=== PATIENT | male | born 1970 | race African-American/Black ===

== ENCOUNTER 2016-06-07 14:02 | Inpatient (IN) | payer MEDICAID ==
[2016-06-07] MEDS ORDERED: SODIUM CHLORIDE 0.9% 10 ML FLUSH FLUSH PRN (14:54)
[2016-06-07] MEDS ORDERED: LABETALOL 20 MG/4 ML SYRINGE IV ONE (14:55)
[2016-06-07 15:13] LABS: AUTOMATED BASOPHIL 2.6 % (0-2); AUTOMATED MONOCYTE 8.9 % (3-10); AUTOMATED NEUTROPHIL 53.5 % (45-76); MPV 8.1 fL (7.4-10.4)
--- NOTE | 2016-06-07 15:19 | DIRPT ---
CLINICAL DATA: Chest pain and dizziness. Hypertension. EXAM: PORTABLE CHEST 1 VIEW COMPARISON: September 19, 2011 FINDINGS: There is no edema or consolidation. Heart is upper normal in size with pulmonary vascularity within normal limits. Aorta is mildly prominent but stable. No adenopathy. No bone lesions. No pneumothorax. IMPRESSION: No edema or consolidation. Stable cardiac silhouette. Chronic prominence of the thoracic aorta is stable and likely due to chronic hypertensive change. Electronically Signed By: Luke Park III, M.D. On: 06/07/2016 15:17
--- NOTE | 2016-06-07 15:21 | EDPRACDOC ---
- General Information Information Source: Patient - History of Present Illness Onset: 2 weeks HPI: PT PRESENTS TODAY WITH SHOB, BACK PAIN AND DIZZINESS X SEVERAL WEEKS. PT STATES THAT HE HAS BEEN OUT OF HIS BP/DM MEDS D/T FINANCES. PT STATES DIZZINESS WITH STANDING, MORA, AND MID-THORACIC BACK PAIN. DENIES CP, ABD PAIN, N/V/D. NO APPARENT DISTRESS. 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 Symptoms: Reports: Moderate Circumstances: Reports: Ran Out of Medication Relevent History of: Reports: Hypertension Hypertension Treatment: Reports: Noncompliant, Recent Cessation Recent Use of: Reports: None Associated Signs and Symptoms: Reports: Shortness of Breath, Other <Ev Urrutia - Last Filed: 06/07/16 17:04> <Clover Orlando - Last Filed: 06/07/16 18:11> - General Information Chief Complaint: Blood Pressure (Problems) Stated Complaint: HIGH BP AND HIGH BLOOD SUGAR Time Seen by Provider: 06/07/16 14:47 Home Medications: Home Medications No Home Medications 06/07/16 Allergies/Adverse Reactions: Allergies Allergy/AdvReac Type Severity Reaction Status Date / Time No Known Allergies Allergy Verified 06/07/16 17:04 ED Past Medical History - History Reviewed Yes Nurses notes reviewed and agree except as marked - Patient Medical History Cardiac History: Reports: Hypertension Psychological History: Denies: Depression Systemic History: Reports: Diabetes <Ev Urrutia - Last Filed: 06/07/16 17:04> EDM Review of Systems - Review of Systems ROS Negative Except as Marked: Yes All systems reviewed and were negative except as marked Constitutional: Fatigue Eyes: No Symptoms Reported Ears: No Symptoms Reported Throat: No Symptoms Reported Nose: No Symptoms Reported Respiratory: Shortness of Breath Cardiovascular: No Symptoms Reported Gastrointestinal: No Symptoms Reported Neurological: Dizziness Musculoskeletal: Back Integumentary: No Symptoms Reported <Ev Urrutia - Last Filed: 06/07/16 17:04> - Physical Exam Constitutional: Alert (Awake), No apparent distress Oriented to: Time, Person, Place Last recorded Vital Signs: Last Vital Signs Temp 98.3 F 06/07/16 14:38 Pulse 88 06/07/16 15:05 Resp 16 06/07/16 15:05 BP 235/140 H 06/07/16 15:05 Pulse Ox 96 06/07/16 15:05 Oxygen Pulse Oxygen Saturation 96 O2 Device Room Air Oxygen Flow Rate Fraction of Inspired Oxygen ( FIO2) - HEENT Head: Normal Eye Exam: Normal Neck: Normal, Denies Pain, Midline - Respiratory/Cardiovascular Respiratory: Normal - CTA Cardiovascular: Tachycardia - GI Palpation: Normal Tenderness: Non tender - Musculoskeletal Back: Normal Extremities: Normal, Other (RADIAL AND PEDAL PULSES BOUNDING AND EQUAL) - Integumentary Skin: Normal Lymphatics: Normal - Neurologic Cerebellar: Normal Mood Description: Normal Thought: Coherent Perception: Normal <Ev Urrutia - Last Filed: 06/07/16 17:04> - Physical Exam Last recorded Vital Signs: Last Vital Signs Temp 98.3 F 06/07/16 14:38 Pulse 83 06/07/16 16:20 Resp 18 06/07/16 16:20 BP 216/128 H 06/07/16 16:20 Pulse Ox 97 06/07/16 16:20 Oxygen Pulse Oxygen Saturation 97 O2 Device Room Air Oxygen Flow Rate Fraction of Inspired Oxygen ( FIO2) <Clover Orlando - Last Filed: 06/07/16 18:11> - Results 06/07/16 14:55 06/07/16 14:55 WBC 5.8 xk/uL (3.8-10.8) 06/07/16 14:55 RBC 5.38 xM/uL (4.70-6.10) 06/07/16 14:55 Hgb 15.7 g/dL (14.0-18.0) 06/07/16 14:55 Hct 45.0 % (42-52) 06/07/16 14:55 MCV 84 fL (80-94) 06/07/16 14:55 MCH 29.1 pg (27-32) 06/07/16 14:55 MCHC 34.8 g/dl (33-36) 06/07/16 14:55 RDW 12.8 % (11.5-14.5) 06/07/16 14:55 Plt Count 270 xk/uL (130-400) 06/07/16 14:55 MPV 8.1 fL (7.4-10.4) 06/07/16 14:55 Neut % (Auto) 53.5 % (45-76) 06/07/16 14:55 Lymph % (Auto) 30.0 % (17-44) 06/07/16 14:55 [place] % (Auto) 8.9 % (3-10) 06/07/16 14:55 Eos % (Auto) 5.0 % (0-5) 06/07/16 14:55 Baso % (Auto) 2.6 % (0-2) H 06/07/16 14:55 Absolute Neuts (auto) 3.07 xk/uL (1.7-8.2) 06/07/16 14:55 Absolute Lymphs (auto) 1.74 xk/uL (0.65-4.75) 06/07/16 14:55 POC Capillary Glucose 362 MG/DL (70-99) H 06/07/16 14:56 Lab Results 06/07/16 06/07/16 14:56 14:55 WBC 5.8 RBC 5.38 Hgb 15.7 Hct 45.0 MCV 84 MCH 29.1 MCHC 34.8 RDW 12.8 Plt Count 270 MPV 8.1 Neut % (Auto) 53.5 Lymph % (Auto) 30.0 [place] % (Auto) 8.9 Eos % (Auto) 5.0 Baso % (Auto) 2.6 H Absolute Neuts (auto) 3.07 Absolute Lymphs (auto) 1.74 POC Capillary Glucose 362 H - EKG EKG #1 EKG Time: 14:49 -: Yes EKG interpreted by me Rate: bpm: 104 [place]: Normal Rhythm: ST Block: None Hypertrophy: LAE, MAZIN, LVH ST: Normal Comparison: 09/19/11 EKG #2 EKG Time: 14:55 -: Yes EKG interpreted by me Rate: bpm: 89 [place]: Normal Rhythm: NSR Block: None Hypertrophy: LAE, MAZIN, LVH ST: Normal <Ev Urrutia - Last Filed: 06/07/16 17:04> - Re-evaluation Re-evaluation 1 Re-evaluation Time: 17:00 (BP STILL VERY HIGH) - Results 06/07/16 14:55 06/07/16 14:55 WBC 5.8 xk/uL (3.8-10.8) 06/07/16 14:55 RBC 5.38 xM/uL (4.70-6.10) 06/07/16 14:55 Hgb 15.7 g/dL (14.0-18.0) 06/07/16 14:55 Hct 45.0 % (42-52) 06/07/16 14:55 MCV 84 fL (80-94) 06/07/16 14:55 MCH 29.1 pg (27-32) 06/07/16 14:55 MCHC 34.8 g/dl (33-36) 06/07/16 14:55 RDW 12.8 % (11.5-14.5) 06/07/16 14:55 Plt Count 270 xk/uL (130-400) 06/07/16 14:55 MPV 8.1 fL (7.4-10.4) 06/07/16 14:55 Neut % (Auto) 53.5 % (45-76) 06/07/16 14:55 Lymph % (Auto) 30.0 % (17-44) 06/07/16 14:55 [place] % (Auto) 8.9 % (3-10) 06/07/16 14:55 Eos % (Auto) 5.0 % (0-5) 06/07/16 14:55 Baso % (Auto) 2.6 % (0-2) H 06/07/16 14:55 Absolute Neuts (auto) 3.07 xk/uL (1.7-8.2) 06/07/16 14:55 Absolute Lymphs (auto) 1.74 xk/uL (0.65-4.75) 06/07/16 14:55 PT 10.0 SEC (9.2-11.2) 06/07/16 14:55 INR 1.0 06/07/16 14:55 APTT 21.9 SEC (22-35) L 06/07/16 14:55 Puncture Site Right radial 06/07/16 15:42 pH 7.420 pH UNITS (7.35-7.45) 06/07/16 15:42 pCO2 41.0 mmHg (35-45) 06/07/16 15:42 pO2 70.0 mmHg (80-100) L 06/07/16 15:42 HCO3 26.6 MMOL/L (22-26) H 06/07/16 15:42 Total CO2 27.9 MMOL/L (23-27) H 06/07/16 15:42 Base Excess 1.9 (+/- 2) 06/07/16 15:42 FiO2 % 0.21 06/07/16 15:42 Specimen Drawn By [place] 06/07/16 15:42 Sodium 136 mEq/L (137-146) L 06/07/16 14:55 Potassium 4.2 mEq/L (3.5-5.1) 06/07/16 14:55 Chloride 94 mEq/L (98-107) L 06/07/16 14:55 Carbon Dioxide 28 mMOL/L (22-33) 06/07/16 14:55 Anion Gap 18 mEq/L (8-16) H 06/07/16 14:55 BUN 11 MG/DL (9-20) 06/07/16 14:55 Creatinine 1.00 MG/DL (0.66-1.25) 06/07/16 14:55 Estimated GFR (MDRD) > 60 mL/min (>=60) 06/07/16 14:55 Glucose 382 MG/DL (70-99) H 06/07/16 14:55 POC Capillary Glucose 362 MG/DL (70-99) H 06/07/16 14:56 Calculated Osmolality 277 MOs/Kg (270-290) 06/07/16 14:55 Calcium 10.0 MG/DL (8.4-10.2) 06/07/16 14:55 Total Bilirubin 1.0 MG/DL (0.2-1.3) 06/07/16 14:55 AST 36 IU/L (17-59) 06/07/16 14:55 ALT 56 IU/L (21-72) 06/07/16 14:55 Alkaline Phosphatase 86 IU/L (38-126) 06/07/16 14:55 Troponin I 0.04 ng/mL (<.04) 06/07/16 14:55 Total Protein 8.9 G/DL (6.3-8.2) H 06/07/16 14:55 Albumin 4.7 G/DL (3.5-5.0) 06/07/16 14:55 Urine Color Yellow 06/07/16 15:35 Urine Clarity Clear 06/07/16 15:35 Urine pH 6.0 (5.0-8.0) 06/07/16 15:35 Ur Specific [place] 1.010 (1.003-1.035) 06/07/16 15:35 Urine Protein 1+ (NEG/TRACE) H 06/07/16 15:35 Urine Glucose (UA) 3+ (NEGATIVE) 06/07/16 15:35 Urine Ketones Neg (NEGATIVE) 06/07/16 15:35 Urine Occult Blood Neg (NEG/TRACE) 06/07/16 15:35 Urine Nitrite Neg (NEGATIVE) 06/07/16 15:35 Urine Bilirubin Neg (NEGATIVE) 06/07/16 15:35 Urine Urobilinogen <2.0 MG/DL (0-1) 06/07/16 15:35 Ur Leukocyte Esterase Neg (NEGATIVE) 06/07/16 15:35 Urine RBC 0-2 (0-2) 06/07/16 15:35 Urine WBC 0-2 (0-2) 06/07/16 15:35 Urine Bacteria Few (NEG/FEW) 06/07/16 15:35 Urine Opiates Screen Neg (NEGATIVE) 06/07/16 15:35 Ur Oxycodone Screen Neg (NEGATIVE) 06/07/16 15:35 Urine Methadone Screen Neg (NEGATIVE) 06/07/16 15:35 Ur Barbiturates Screen Neg (NEGATIVE) 06/07/16 15:35 Ur Tricyclics Screen Neg (NEGATIVE) 06/07/16 15:35 Ur Phencyclidine Scrn Neg (NEGATIVE) 06/07/16 15:35 Ur Amphetamines Screen Neg (NEGATIVE) 06/07/16 15:35 U Methamphetamines Scrn Neg (NEGATIVE) 06/07/16 15:35 Urine MDMA Screen Neg (NEGATIVE) 06/07/16 15:35 U Benzodiazepines Scrn Neg (NEGATIVE) 06/07/16 15:35 Urine Cocaine Screen *positive* (NEGATIVE) H 06/07/16 15:35 Ur THC Screen Neg (NEGATIVE) 06/07/16 15:35 Lab Results 06/07/16 06/07/16 06/07/16 15:42 15:35 15:35 WBC RBC Hgb Hct MCV MCH MCHC RDW Plt Count MPV Neut % (Auto) Lymph % (Auto) [place] % (Auto) Eos % (Auto) Baso % (Auto) Absolute Neuts (auto) Absolute Lymphs (auto) PT INR APTT Puncture Site Right radial pH 7.420 pCO2 41.0 pO2 70.0 L HCO3 26.6 H Total CO2 27.9 H Base Excess 1.9 FiO2 % 0.21 Specimen Drawn By [place] Sodium Potassium Chloride Carbon Dioxide Anion Gap BUN Creatinine Estimated GFR (MDRD) Glucose POC Capillary Glucose Calculated Osmolality Calcium Total Bilirubin AST ALT Alkaline Phosphatase Troponin I Total Protein Albumin Urine Color Yellow Urine Clarity Clear Urine pH 6.0 Ur Specific [place] 1.010 Urine Protein 1+ H Urine Glucose (UA) 3+ Urine Ketones Neg Urine Occult Blood Neg Urine Nitrite Neg Urine Bilirubin Neg Urine Urobilinogen <2.0 Ur Leukocyte Esterase Neg Urine RBC 0-2 Urine WBC 0-2 Urine Bacteria Few Urine Opiates Screen Neg Ur Oxycodone Screen Neg Urine Methadone Screen Neg Ur Barbiturates Screen Neg Ur Tricyclics Screen Neg Ur Phencyclidine Scrn Neg Ur Amphetamines Screen Neg U Methamphetamines Scrn Neg Urine MDMA Screen Neg U Benzodiazepines Scrn Neg Urine Cocaine Screen *positive* H Ur THC Screen Neg 06/07/16 06/07/16 06/07/16 14:56 14:55 14:55 WBC 5.8 RBC 5.38 Hgb 15.7 Hct 45.0 MCV 84 MCH 29.1 MCHC 34.8 RDW 12.8 Plt Count 270 MPV 8.1 Neut % (Auto) 53.5 Lymph % (Auto) 30.0 [place] % (Auto) 8.9 Eos % (Auto) 5.0 Baso % (Auto) 2.6 H Absolute Neuts (auto) 3.07 Absolute Lymphs (auto) 1.74 PT 10.0 INR 1.0 APTT 21.9 L Puncture Site pH pCO2 pO2 HCO3 Total CO2 Base Excess FiO2 % Specimen Drawn By Sodium Potassium Chloride Carbon Dioxide Anion Gap BUN Creatinine Estimated GFR (MDRD) Glucose POC Capillary Glucose 362 H Calculated Osmolality Calcium Total Bilirubin AST ALT Alkaline Phosphatase Troponin I Total Protein Albumin Urine Color Urine Clarity Urine pH Ur Specific [place] Urine Protein Urine Glucose (UA) Urine Ketones Urine Occult Blood Urine Nitrite Urine Bilirubin Urine Urobilinogen Ur Leukocyte Esterase Urine RBC Urine WBC Urine Bacteria Urine Opiates Screen Ur Oxycodone Screen Urine Methadone Screen Ur Barbiturates Screen Ur Tricyclics Screen Ur Phencyclidine Scrn Ur Amphetamines Screen U Methamphetamines Scrn Urine MDMA Screen U Benzodiazepines Scrn Urine Cocaine Screen Ur THC Screen 06/07/16 14:55 WBC RBC Hgb Hct MCV MCH MCHC RDW Plt Count MPV Neut % (Auto) Lymph % (Auto) [place] % (Auto) Eos % (Auto) Baso % (Auto) Absolute Neuts (auto) Absolute Lymphs (auto) PT INR APTT Puncture Site pH pCO2 pO2 HCO3 Total CO2 Base Excess FiO2 % Specimen Drawn By Sodium 136 L Potassium 4.2 Chloride 94 L Carbon Dioxide 28 Anion Gap 18 H BUN 11 Creatinine 1.00 Estimated GFR (MDRD) > 60 Glucose 382 H POC Capillary Glucose Calculated Osmolality 277 Calcium 10.0 Total Bilirubin 1.0 AST 36 ALT 56 Alkaline Phosphatase 86 Troponin I 0.04 Total Protein 8.9 H Albumin 4.7 Urine Color Urine Clarity Urine pH Ur Specific [place] Urine Protein Urine Glucose (UA) Urine Ketones Urine Occult Blood Urine Nitrite Urine Bilirubin Urine Urobilinogen Ur Leukocyte Esterase Urine RBC Urine WBC Urine Bacteria Urine Opiates Screen Ur Oxycodone Screen Urine Methadone Screen Ur Barbiturates Screen Ur Tricyclics Screen Ur Phencyclidine Scrn Ur Amphetamines Screen U Methamphetamines Scrn Urine MDMA Screen U Benzodiazepines Scrn Urine Cocaine Screen Ur THC Screen - Additional Information PT DENIES COCAINE USE. <Clover Orlando - Last Filed: 06/07/16 18:11> - Departure Disposition: Admit IP To This Hospital <Ev Urrutia - Last Filed: 06/07/16 17:04> - Departure Yes I personally saw and evaluated the patient. Disposition: Admit IP To This [facility] Education/Counseling Given To: Patient Education/Counseling Given Regarding: Diagnosis, Treatment Decision to Admit Time: 17:01 Decision to admit date: 06/07/16 Decision to admit: from ED - Physician Consulted Hospitalist Provider Called: Harpreet Ro <Clover Orlando - Last Filed: 06/07/16 18:11> - Departure Condition: Serious Final Diagnosis: Malignant hypertension, LATERAL ISCHEMIC CHANGES ON EKG, Hyperglycemia, Noncompliance with medication regimen Instructions: Chronic Hypertension (ED) Referrals: None,No Provider [Primary Care Provider] - One Week
[2016-06-07 15:23] LABS: BLOOD UREA NITROGEN 11 MG/DL (9-20); CALCULATED OSMOLALITY 277 MOs/Kg (270-290); CHLORIDE 94 mEq/L (98-107); GLUCOSE 382 MG/DL (70-99); SODIUM LEVEL 136 mEq/L (137-146); TOTAL PROTEIN 8.9 G/DL (6.3-8.2)
[2016-06-07 15:25] LABS: PARTIAL THROMB. TIME 21.9 SEC (22-35)
[2016-06-07 15:40] LABS: ALL NEG? NO
[2016-06-07] MEDS ORDERED: Nitroglycerin D5W 50,000 MCG/250 ML IVBOT IV STA (15:40)
[2016-06-07 15:47] LABS: ALLEN'S TEST PASS
[2016-06-07 15:48] LABS: BEb 1.9 (+/- 2); TCO2 27.9 MMOL/L (23-27)
[2016-06-07 15:50] LABS: MDMA* NEG (NEGATIVE); METHAMPHETAMINES NEG (NEGATIVE); OXYCODONE NEG (NEGATIVE)
[2016-06-07 15:54] LABS: LEUKOCYTES/URINE NEG (NEGATIVE); NITRITE/URINE NEG (NEGATIVE); RBC/URINE 0-2 (0-2); URINE OCCULT BLOOD NEG (NEG/TRACE); WBC/URINE 0-2 (0-2)
[2016-06-07 15:54] LABS: ABG Draw Site Right Radial
[2016-06-07] MEDS ORDERED: Pharmacy Review for Metformin - IV Contrast Given SCH (16:00)
--- NOTE | 2016-06-07 16:54 | DIRPT ---
CLINICAL DATA: Mid thoracic back pain and dizziness. Dissection protocol. High blood pressure. EXAM: CT ANGIOGRAPHY CHEST, ABDOMEN AND PELVIS TECHNIQUE: Multidetector CT imaging through the chest, abdomen and pelvis was performed using the standard protocol during bolus administration of intravenous contrast. Multiplanar reconstructed images and MIPs were obtained and reviewed to evaluate the vascular anatomy. CONTRAST: 100 mL Isovue 370 COMPARISON: Chest radiograph 06/07/2016 and lumbar spine MRI 10/14/2006 FINDINGS: CTA CHEST FINDINGS No evidence for an aortic dissection or intramural hematoma. The aortic root at the sinuses of Valsalva measure up to 4.1 cm. Mid ascending thoracic aorta is enlarged measuring 4.1 cm. Proximal aortic arch measures up to 3.8 cm. Typical aortic arch anatomy. Great vessels are patent. Proximal descending thoracic aorta measures 3.2 cm. Pulmonary emboli cannot be evaluated due to poor opacification of the pulmonary arteries. There is a partially visualized left thyroid nodule measuring up to 1.3 cm. Thyroid tissue appears to be heterogeneous. Small amount of fluid in pericardial recess. No significant pericardial or pleural effusions. No evidence for chest lymphadenopathy. The trachea and mainstem bronchi are patent. Lungs are clear without airspace disease or consolidation. No acute bone abnormality. Review of the MIP images confirms the above findings. CTA ABDOMEN AND PELVIS FINDINGS Normal caliber of the abdominal aorta without aneurysm or dissection. There is no significant atherosclerotic plaque in the aorta or iliac arteries. Celiac trunk and main branch vessels are patent. SMA is widely patent. Inferior mesenteric artery is widely patent. Single bilateral renal arteries are widely patent. Mild tortuosity of the iliac arteries without stenosis. Proximal femoral arteries are patent bilaterally. Low-attenuation of the liver is suggestive for hepatic steatosis. There are multiple gallstones without distension or surrounding inflammatory changes. Normal appearance of the pancreas without inflammation or duct dilatation. Normal appearance of the spleen without enlargement. Normal appearance of the adrenal glands. Normal appearance of both kidneys without hydronephrosis. Normal appearance of the urinary bladder. Prostate is prominent measuring up to 5.6 cm. No gross abnormality to seminal vesicles. Normal appearance of the appendix. No acute abnormality in the small or large bowel. No significant free fluid or lymphadenopathy. There is cortical thickening with lucency involving the left L5 inferior articulating facet. Findings are suggestive for a prior fracture. Suspect this is a subacute or chronic fracture based on the cortical hypertrophy compared to the other side. However, this could represent a nonunion. These findings appear new from the MRI from 2006. Mild disc space disease at L5-S1. Review of the MIP images confirms the above findings. IMPRESSION: Negative for an aortic dissection. 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 Recommend annual imaging followup by CTA or MRA. This recommendation follows 2010 ACCF/AHA/AATS/ACR/ASA/SCA/SCAI/SIR/STS/SVM Guidelines for the Diagnosis and Management of Patients with Thoracic Aortic Disease. Circulation. 2010; 121: [id number] Cholelithiasis without acute inflammatory changes. Hepatic steatosis. Age indeterminate fracture involving the L5 left inferior facet. This could represent a nonunion. Recommend clinical correlation in this area. Partially visualized left thyroid nodule. This could be further characterized with ultrasound. Electronically Signed By: Mohinder Hernandez M.D. On: 06/07/2016 16:51
[2016-06-07] MEDS ORDERED: REGULAR INSULIN 100 UNITS/ML - 3 ML VIAL IV ONE (16:59)
[2016-06-07] MEDS ORDERED: MAGNESIUM HYDROXIDE 30 ML BOTTLE PO PRN (18:59)
[2016-06-07] MEDS ORDERED: GLUCOSE (ORAL GEL) 15 GM TUBE PO PRN (18:59)
[2016-06-07] MEDS ORDERED: Docusate Sodium 100 MG CAP PO PRN (18:59)
[2016-06-07] MEDS ORDERED: ONDANSETRON HCL 4 MG/2 ML VIAL IV PRN (18:59)
[2016-06-07] MEDS ORDERED: DEXTROSE 25 GM/50 ML PFS IV PRN (18:59)
[2016-06-07] MEDS ORDERED: GLUCAGON 1 MG VIAL SQ PRN (18:59)
[2016-06-07] MEDS ORDERED: hydrALAZINE 20 MG/ML VIAL IV PRN (19:03)
--- NOTE | 2016-06-07 19:04 | HISTPHYS ---
- Chief Complaint dizziness, weakness, polyuria - History of Present Illness Mr. Buchanan is a 46-year-old male with history of diabetes mellitus and hypertension who has been out of his medications for "some time." He presents to the emergency room with complaints of dizziness, generalized weakness, polyuria and polydipsia. The symptoms have been progressively worsening over the last several weeks. In the emergency room he was found to be hypertensive with blood pressures in the 250s systolic. He was also significantly hyperglycemic with blood sugars in the mid 300s and his drug screen is positive for cocaine. He has been started on IV nitroglycerin with improvement in blood pressures down to the 170 to 180 systolic range. He states that normally he does not use cocaine he did use some at new years. He does state that he drinks alcohol approximately 3-4 days a week but not on a daily basis. He will be admitted to the intensive care unit for further evaluation management of malignant hypertension and uncontrolled diabetes. - Medical History Cardiac History: Reports: Hypertension Respiratory History: Reports: No Significant History GI/ History: Reports: No Significant History Musculoskeletal History: Reports: No Significant History Systemic History: Reports: Diabetes Neurological History: Reports: No Significant History Psychological History: Reports: Substance Use Disorder. Denies: Depression - Surgical History Reports: No Significant History - Medictions/Allergies Allergies No Known Allergies Allergy (Verified 06/07/16 17:04) Current Medication List: Reviewed Home Medications No Home Medications 06/07/16 - Family History Reports: Hypertension, Diabetes, Cancer, Cardiac Disorders, Respiratory Disorders - Social History Travel Outside of [place] in the Last 3 Months?: No Lives: Alone Smoking Status: Never smoker Social History: Reports: Alcohol Use, Cocaine Use - Review of Systems Yes All systems reviewed and were negative except as marked Constitutional: Fatigue, Weakness. negative: Chills, Fever - Eyes No Symptoms Reported. negative: Blurred Vision, Double Vision, Pain, Photophobia, Redness - Ears No Symptoms Reported. negative: Drainage, Hearing Loss, Pain - Nose No Symptoms Reported. negative: Abrasion, Bleeding, Congestion - Mouth Mouth: No Symptoms Reported. negative: Pain, Drooling, Denture - Throat/Neck No Symptoms Reported. negative: Pain, Swelling, Hoarseness, Snoring - Respiratory No Symptoms Reported. negative: Barky Cough, Brassy Cough, Cough, Shortness of Breath, Wheezing, Sputum - Cardiovascular Chest Pain (Several days ago but none in the last couple of days.). negative: Cyanosis, Orthopnea, Palpitations, PND - Gastrointestinal Gastrointestinal: No Symptoms Reported. negative: Nausea, Vomiting, Abdominal Pain - Genitourinary Genitourinary: No Symptoms Reported. negative: Bleeding, Dysuria, Discharge, Frequency - Neurological Dizziness, Weakness - Musculoskeletal Musculoskeletal:: Weakness - Integumentary No Symptoms Reported. negative: Bruising, Rash, Wound - Allergic/Immunologic No Symptoms Reported. negative: Hives, Itching - Hematologic No Symptoms Reported. negative: Lymphadenopathy, Easy Bleeding, Anemia - Endocrine Excessive Thirst, Excessive Hunger, Polyuria, Diabetes - Psychiatric No Symptoms Reported. negative: Anxiety, Hallucinations, Insomnia - Physical Exam Constitutional: No apparent distress, Alert (Awake), Well nourished, Well appearing Oriented to: Time, Person, Place Exam: Last Vital Signs Temp 98.3 F 06/07/16 14:38 Pulse 92 06/07/16 18:36 Resp 06/07/16 18:36 BP 166/92 06/07/16 18:36 Pulse Ox 97 06/07/16 18:36 Intake & Output 06/07/16 06/07/16 06/07/16 07:59 15:59 23:59 Patient's weight 97.885 kg - HEENT Head: Normal Eye: Normal Oropharynx: Normal Nose: No Symptoms Reported - Respiratory/Cardiovascular Respiratory: Normal - CTA. negative: Accessory Muscle Use Cardiovascular: Tachycardia. negative: Systolic murmur, Gallop/S3 - GI Auscultation: Normal Palpation: Normal Tenderness: Non tender - Musculoskeletal Back: Normal. negative: Abrasion Extremities: Normal, Other (RADIAL AND PEDAL PULSES BOUNDING AND EQUAL). negative: Calf Tenderness - Integumentary Skin: Normal, Warm, Dry Lymphatics: Normal - Neurologic Memory Impaired: Normal Motor Function: Normal Cranial Nerve: Normal Cerebellar: Normal Mood Description: Normal Thought: Coherent Perception: Normal - Focused CV Perfusion Exam Vital Signs: Last Vital Signs Temp 98.3 F 06/07/16 14:38 Pulse 92 06/07/16 18:36 Resp 16 06/07/16 18:36 BP 166/92 06/07/16 18:36 Pulse Ox 97 06/07/16 18:36 - Lab Results Laboratory Results - last 24 hr 06/07/16 06/07/1606/07/17 14:55 14:55 14:55 WBC 5.8 RBC 5.38 Hgb 15.7 Hct 45.0 MCV 84 MCH 29.1 MCHC 34.8 RDW 12.8 Plt Count 270 MPV 8.1 Neut % (Auto) 53.5 Lymph % (Auto) 30.0 [place] % (Auto) 8.9 Eos % (Auto) 5.0 Baso % (Auto) 2.6 H Absolute Neuts (auto) 3.07 Absolute Lymphs (auto) 1.74 PT 10.0 INR 1.0 APTT 21.9 L Puncture Site pH pCO2 pO2 HCO3 Total CO2 Base Excess FiO2 % Specimen Drawn By Sodium 136 L Potassium 4.2 Chloride 94 L Carbon Dioxide 28 Anion Gap 18 H BUN 11 Creatinine 1.00 Estimated GFR (MDRD) > 60 Glucose 382 H POC Capillary Glucose Calculated Osmolality 277 Calcium 10.0 Total Bilirubin 1.0 AST 36 ALT 56 Alkaline Phosphatase 86 Troponin I 0.04 Total Protein 8.9 H Albumin 4.7 Urine Color Urine Clarity Urine pH Ur Specific [place] Urine Protein Urine Glucose (UA) Urine Ketones Urine Occult Blood Urine Nitrite Urine Bilirubin Urine Urobilinogen Ur Leukocyte Esterase Urine RBC Urine WBC Urine Bacteria Urine Opiates Screen Ur Oxycodone Screen Urine Methadone Screen Ur Barbiturates Screen Ur Tricyclics Screen Ur Phencyclidine Scrn Ur Amphetamines Screen U Methamphetamines Scrn Urine MDMA Screen U Benzodiazepines Scrn Urine Cocaine Screen Ur THC Screen 06/07/16 06/07/16 06/07/16 14:56 15:35 15:35 WBC RBC Hgb Hct MCV MCH MCHC RDW Plt Count MPV Neut % (Auto) Lymph % (Auto) [place] % (Auto) Eos % (Auto) Baso % (Auto) Absolute Neuts (auto) Absolute Lymphs (auto) PT INR APTT Puncture Site pH pCO2 pO2 HCO3 Total CO2 Base Excess FiO2 % Specimen Drawn By Sodium Potassium Chloride Carbon Dioxide Anion Gap BUN Creatinine Estimated GFR (MDRD) Glucose POC Capillary Glucose 362 H Calculated Osmolality Calcium Total Bilirubin AST ALT Alkaline Phosphatase Troponin I Total Protein Albumin Urine Color Yellow Urine Clarity Clear Urine pH 6.0 Ur Specific [place] 1.010 Urine Protein 1+ H Urine Glucose (UA) 3+ Urine Ketones Neg Urine Occult Blood Neg Urine Nitrite Neg Urine Bilirubin Neg Urine Urobilinogen <2.0 Ur Leukocyte Esterase Neg Urine RBC 0-2 Urine WBC 0-2 Urine Bacteria Few Urine Opiates Screen Neg Ur Oxycodone Screen Neg Urine Methadone Screen Neg Ur Barbiturates Screen Neg Ur Tricyclics Screen Neg Ur Phencyclidine Scrn Neg Ur Amphetamines Screen Neg U Methamphetamines Scrn Neg Urine MDMA Screen Neg U Benzodiazepines Scrn Neg Urine Cocaine Screen *positive* H Ur THC Screen Neg 06/07/16 06/07/16 06/07/16 15:42 17:45 17:49 WBC RBC Hgb Hct MCV MCH MCHC RDW Plt Count MPV Neut % (Auto) Lymph % (Auto) [place] % (Auto) Eos % (Auto) Baso % (Auto) Absolute Neuts (auto) Absolute Lymphs (auto) PT INR APTT Puncture Site Right radial pH 7.420 pCO2 41.0 pO2 70.0 L HCO3 26.6 H Total CO2 27.9 H Base Excess 1.9 FiO2 % 0.21 Specimen Drawn By [place] Sodium Potassium Chloride Carbon Dioxide Anion Gap BUN Creatinine Estimated GFR (MDRD) Glucose POC Capillary Glucose 337 H Calculated Osmolality Calcium Total Bilirubin AST ALT Alkaline Phosphatase Troponin I 0.05 Total Protein Albumin Urine Color Urine Clarity Urine pH Ur Specific [place] Urine Protein Urine Glucose (UA) Urine Ketones Urine Occult Blood Urine Nitrite Urine Bilirubin Urine Urobilinogen Ur Leukocyte Esterase Urine RBC Urine WBC Urine Bacteria Urine Opiates Screen Ur Oxycodone Screen Urine Methadone Screen Ur Barbiturates Screen Ur Tricyclics Screen Ur Phencyclidine Scrn Ur Amphetamines Screen U Methamphetamines Scrn Urine MDMA Screen U Benzodiazepines Scrn Urine Cocaine Screen Ur THC Screen - Assessment (1) Malignant hypertension I10 - ESSENTIAL (PRIMARY) HYPERTENSION Acute Present on Admission: Yes Started on IV nitroglycerin with some improvement in blood pressures. Start hydrochlorothiazide and metoprolol. Add ARUNA-inhibitor in 1-2 days. (2) Uncontrolled diabetes mellitus E11.65 - TYPE 2 DIABETES MELLITUS WITH HYPERGLYCEMIA Acute Present on Admission: Yes Qualifiers: Diabetes mellitus type: type 2 Diabetes mellitus complication status: without complication Diabetes mellitus buttermaker helper insulin use: without buttermaker helper use Qualified Code(s): E11.65 - Type 2 diabetes mellitus with hyperglycemia Restart metformin. Accu-Cheks and sliding scale insulin. Stressed medication compliance and follow-up with primary physician. Likely will need referral to [facility]. (3) Dizziness R42 - DIZZINESS AND GIDDINESS Acute Present on Admission: Yes Likely related to uncontrolled blood pressures, uncontrolled blood sugars, mild dehydration. (4) Cocaine use F14.10 - COCAINE ABUSE, UNCOMPLICATED Acute Present on Admission: Yes Says he does not use regularly but he did use it at new year's. Counseled cessation completely. (5) Alcohol use Z78.9 - OTHER SPECIFIED HEALTH STATUS Acute Drinks 3-4 days a week. Counseled cessation (6) Noncompliance with medication regimen Z91.14 - PATIENT'S OTHER NONCOMPLIANCE WITH MEDICATION REGIMEN Acute Present on Admission: Yes Stressed compliance and follow-up primary physician Case Care Discussed with: Patient, Nursing Staff Total Time: 1 hour Critical Care: Yes
[2016-06-07] MEDS: METOPROLOL TARTRATE 25 MG TAB PO SCH (21:06)
[2016-06-07] MEDS: HYDROCHLOROTHIAZIDE 25 MG TAB PO SCH (21:06)
[2016-06-07] MEDS: NS/KCl 20 mEq 1,000 ML IV SCH (21:07)
[2016-06-07] MEDS: REGULAR INSULIN 100 UNITS/ML - 3 ML VIAL SQ SCH (21:07)
[2016-06-07] MEDS: ENOXAPARIN 60 MG/0.6 ML PFS SQ SCH (21:14)
[2016-06-07] MEDS: Nitroglycerin D5W 50,000 MCG/250 ML IVBOT IV SCH (21:24)
[2016-06-07] MEDS: CHLORHEXIDINE (HIBICLENS) 4 OZ BOTTLE TOP SCH (21:24)
[2016-06-07] MEDS: ACETAMINOPHEN 325 MG/TAB TABLET PO PRN (21:31)
[2016-06-07] MEDS ORDERED: Vaccine Screening Complete SCH (22:00)
[2016-06-08] MEDS: ACETAMINOPHEN 325 MG/TAB TABLET PO PRN ×2 (04:03→14:17)
[2016-06-08 04:50] VITALS: BMI 30.4
[2016-06-08] MEDS: NS/KCl 20 mEq 1,000 ML IV SCH ×2 (05:27→13:50)
[2016-06-08] MEDS: METOPROLOL TARTRATE 25 MG TAB PO SCH ×3 (05:59→20:59)
[2016-06-08] MEDS: REGULAR INSULIN 100 UNITS/ML - 3 ML VIAL SQ SCH ×4 (05:59→21:14)
[2016-06-08 06:14] LABS: BLOOD UREA NITROGEN 15 MG/DL (9-20); CALCIUM 9.3 MG/DL (8.4-10.2); CALCULATED OSMOLALITY 269 MOs/Kg (270-290); CHLORIDE 96 mEq/L (98-107); GLUCOSE 279 MG/DL (70-99); SODIUM LEVEL 134 mEq/L (137-146)
[2016-06-08 06:23] LABS: AUTOMATED EOSINOPHIL 5.6 % (0-5); AUTOMATED LYMPH 27.2 % (17-44); AUTOMATED MONOCYTE 8.9 % (3-10); AUTOMATED NEUTROPHIL 57.3 % (45-76); MPV 8.3 fL (7.4-10.4)
[2016-06-08] MEDS: HYDROCHLOROTHIAZIDE 25 MG TAB PO SCH (08:50)
[2016-06-08 15:21] VITALS: TEMP 98.2
[2016-06-08] MEDS: ENOXAPARIN 60 MG/0.6 ML PFS SQ SCH (17:26)
[2016-06-08] MEDS ORDERED: LISINOPRIL 40 MG TAB PO ONE (17:30)
[2016-06-08] MEDS ORDERED: hydrALAZINE 20 MG/ML VIAL IV PRN (19:25)
--- NOTE | 2016-06-08 19:31 | GENMEDPROG ---
Subjective Note: Patient in bed responsive follows commands. Denies and difficulties breathing cough or phlegm production. Still reports occipital headache. Feeling weak tired and fatigued ,looking down and depressed Notes Reviewed: Yes Events from last night noted and discussed with Clinical Staff Current Medication List: Reviewed Currently: Reports: MORA, Sputum, Reflux Sx - Physical Examination Vital Signs and I&O: Last Vital Signs Temp 98.2 F 06/08/16 15:00 Pulse 84 06/08/16 18:00 Resp 20 06/08/16 15:10 BP 182/117 H 06/08/16 19:00 Pulse Ox 96 06/08/16 08:00 Oxygen Pulse Oxygen Saturation 96 O2 Device Room Air Oxygen Flow Rate Fraction of Inspired Oxygen ( FIO2) Intake & Output 06/05/16 06/06/16 06/07/16 06/08/16 23:59 23:59 23:59 23:59 Intake Total 292 3687 Output Total 1300 Balance 292 2387 Patient's weight 98.747 kg 99.019 kg General: Alert, Oriented x3, Cooperative, No acute distress HEENT: Normal, PERRLA, EOMI, Anicteric Sclera Neck: Non-tender, Normal inspection Lymphatics: Normal Respiratory: Normal - CTA, Diminished, Rhonchi. negative: Accessory Muscle Use Cardiovascular: Regular rate, Normal S1, Normal S2, Murmurs GI: Normal bowel sounds, Soft, Non tender, No hepatospenomegaly, No masses Extremities/Musculoskeletal: Edema, DJD Skin: Warm,Dry and Intact, No rashes, No breakdown, No significant lesion Neurological: Normal speech, Normal tone, Cranial nerves 3-12 NL Psych/Mental Status: Anxious Lab/DI/Studies Reviewed: Last Vital Signs Temp 98.2 F 06/08/16 15:00 Pulse 84 06/08/16 18:00 Resp 20 06/08/16 15:10 BP 182/117 H 06/08/16 19:00 Pulse Ox 96 06/08/16 08:00 Allergies No Known Allergies Allergy (Verified 06/07/16 17:04) 06/08/16 05:30 06/08/16 05:30 - Assessment (1) Hypertensive emergency Acute I16.1 - HYPERTENSIVE EMERGENCY Comment/Plan: Up- titrate medications to keep blood pressure under better control. Monitor renal function (2) Uncontrolled diabetes mellitus Acute E11.65 - TYPE 2 DIABETES MELLITUS WITH HYPERGLYCEMIA Qualifiers: Diabetes mellitus type: type 2 Diabetes mellitus complication status: with neurologic complications Diabetes mellitus detention insulin use: without regular senior care provider use Comment/Plan: Continue metformin and ADA diet continue sliding scale regular insulin (3) Cocaine use Acute F14.10 - COCAINE ABUSE, UNCOMPLICATED Comment/Plan: Strongly encouraged to stop using any street drugs (4) GERD (gastroesophageal reflux disease) Acute K21.9 - GASTRO-ESOPHAGEAL REFLUX DISEASE WITHOUT ESOPHAGITIS Qualifiers: Esophagitis presence: without esophagitis Qualified Code(s): K21.9 - Gastro -esophageal reflux disease without esophagitis Comment/Plan: Continue PPI (5) Dyslipidemia Acute E78.5 - HYPERLIPIDEMIA, UNSPECIFIED Comment/Plan: Will obtain lipid panel (6) Noncompliance with medication regimen Acute Z91.14 - PATIENT'S OTHER NONCOMPLIANCE WITH MEDICATION REGIMEN Comment /Plan: Stressed compliance and follow-up primary physician Case Care Discussed with: Patient, Nursing Staff, Prop Maker Education/Counseling Given To: Patient Education/Counseling Given Regarding: Diagnosis, Treatment, Prognosis, Follow Up Critical Care: Yes Code: 291
[2016-06-08] MEDS: Nitroglycerin D5W 50,000 MCG/250 ML IVBOT IV SCH (19:58)
[2016-06-08] MEDS ORDERED: AMLODIPINE 5 MG TAB PO ONE (20:00)
[2016-06-08] MEDS: CHLORHEXIDINE (HIBICLENS) 4 OZ BOTTLE TOP SCH (21:08)
[2016-06-09] MEDS ORDERED: NS/KCl 20 mEq 1,000 ML IV SCH
[2016-06-09] MEDS: ACETAMINOPHEN 325 MG/TAB TABLET PO PRN (02:07)
[2016-06-09] MEDS: METOPROLOL TARTRATE 25 MG TAB PO SCH (05:24)
[2016-06-09] MEDS: REGULAR INSULIN 100 UNITS/ML - 3 ML VIAL SQ SCH (05:26)
[2016-06-09 05:38] LABS: BLOOD UREA NITROGEN 10 MG/DL (9-20); CALCIUM 8.8 MG/DL (8.4-10.2); CALCULATED OSMOLALITY 263 MOs/Kg (270-290); CHLORIDE 98 mEq/L (98-107); GLUCOSE 258 MG/DL (70-99); SODIUM LEVEL 132 mEq/L (137-146)
[2016-06-09] MEDS ORDERED: PANTOPRAZOLE 40 MG TAB PO SCH (06:00)
[2016-06-09] MEDS ORDERED: LISINOPRIL 40 MG TAB PO SCH (09:00)
--- NOTE | 2016-06-09 09:01 | PCM.DCS92 ---
- Final/Secondary Discharge Diagnosis (1) Hypertensive emergency Acute I16.1 - HYPERTENSIVE EMERGENCY Present on Admission: Yes Comment: Overall blood pressure under much better control on oral agents only. (2) Uncontrolled diabetes mellitus Acute E11.65 - TYPE 2 DIABETES MELLITUS WITH HYPERGLYCEMIA Present on Admission: Yes type 2 with neurologic complications without chcf use Comment: Continue metformin and ADA diet continue sliding scale regular insulin. Hemoglobin A1c of 13.3 on this admission, detailed that education regarding diabetic diet provided the patient. Prescription for diabetic supplies issued and he was clearly advised to check his sugar twice a day (3) Cocaine use Acute F14.10 - COCAINE ABUSE, UNCOMPLICATED Present on Admission: Yes Comment: Strongly encouraged to stop using any street drugs (4) GERD (gastroesophageal reflux disease) Acute K21.9 - GASTRO-ESOPHAGEAL REFLUX DISEASE WITHOUT ESOPHAGITIS without esophagitis K21.9 - Gastro-esophageal reflux disease without esophagitis Comment: Continue PPI (5) Dyslipidemia Chronic E78.5 - HYPERLIPIDEMIA, UNSPECIFIED Present on Admission: Yes Comment: Will obtain lipid panel (6) Noncompliance with medication regimen Acute Z91.14 - PATIENT'S OTHER NONCOMPLIANCE WITH MEDICATION REGIMEN Present on Admission: Yes Comment: Stressed compliance and follow-up primary physician. Patient was clearly advised that lack of compliance with medical therapy and follow-up office visits may result in serious medical complications and including Discharge Disposition: Home Discharge Condition: Improved Cognitive Discharge Status: Unimpaired Fuctional Discharge Status: Independent Physician Follow up/Referrals: None,No Provider [Family Provider] - One Week [facility] [Provider Group] - Listed Time New Prescriptions: Carvedilol [Coreg] 12.5 mg PO BID #180 tab Metformin HCl [Glumetza] 1,000 mg PO BID #180 tab Aspirin (Enteric Coated) [Halfprin] 325 mg PO DAILY #90 tab Hydrochlorothiazide 25 mg PO DAILY #90 tablet Lisinopril 40 mg PO DAILY #90 tablet O2 Device: Room Air Diet at Discharge: Cardiac, Heart Healthy, Low Salt, Diabetic, 2200 Calorie, High Fiber Activity: As Tolerated, Limited Call Office For: Worsening Symptoms, Fever over 101 F Discontinue use of:: Alcohol, All Illegal Substances, All Types of Tobacco - DC Summary Notes Hospital Course Note:: Discharge summary on patient named YADY WALSH admitted to [facility] on 06/07/16 by Good Cantu MD. Date of discharge is []. Patient is initially present emergency room on June 07 for evaluation of severe headache generalize weakness, polydipsia and polyuria. He reported worsening symptoms over the past few weeks. Please refer to the admission for further details. Once in ED patient was found profoundly hypertensive his initial blood pressure was 250/117 his blood sugar was greater than 300, urine drug screen was positive for cocaine. Patient required multiple IV BP meds to keep his blood pressure under control and subsequent started on IV nitroglycerin infusion and was admitted to ICU. He was also started on oral agents and throughout remaining part of hospitalization his systolic blood pressure oscillating between 140 and 160. He was started on Glucophage and continued to required moderate dose sliding scale insulin coverage. His hemoglobin A1c was 13.3. Detailed dietary education regarding diabetes and salt restriction was provided the patient during this hospital stay as well. CT chest abdomen and pelvis was obtained which showed no aortic dissection but aneurysm of ascending aorta measuring up to 4.1 cm hepatic steatosis and cholelithiasis. His activity level was gradually advanced and by time of discharge patient is able to ambulate freely with no assistance. His tolerated Glucophage without any side effects or adverse reaction. His LFTs renal function and electrolytes were all normal. It was felt that by July 10 patient has reached maximum benefit of inpatient therapy and in clinically improved and stable condition he has been discharged home to the care of the family. Referral to [facility] for follow-up medical care was made for the patient as well. Again he was clearly instructed to refrain from using street drugs alcohol cigarettes, he was also instructed to check his sugars twice a day and blood pressure at least once a day. Total Time: 40 min . Code: 75076 (>30min.) - Physical Exam Vital Signs: Last Vital Signs Temp 98.2 F 06/09/16 07:00 Pulse 85 06/09/16 08:00 Resp 20 06/09/16 06:00 BP 158/93 06/09/16 08:00 Pulse Ox 96 06/08/16 20:00 Oxygen Pulse Oxygen Saturation 96 O2 Device Room Air Oxygen Flow Rate Fraction of Inspired Oxygen ( FIO2) Constitutional: No apparent distress, Alert (Awake), Well nourished, Well appearing Oriented to: Time, Person, Place - HEENT Head: Normal Eye: Normal Oropharynx: Normal ENT EAC: Normal TMJ: Normal Nose: No Symptoms Reported - Respiratory/Cardiovascular Respiratory: Normal - CTA, Diminished, Rhonchi. negative: Accessory Muscle Use Cardiovascular: Normal, Systolic murmur - GI Auscultation: Normal Palpation: Normal Tenderness: Non tender Rectal Exam: Deferred - Exam Deferred: Yes - Musculoskeletal Back: Normal. negative: Abrasion Extremities: Normal, Other (RADIAL AND PEDAL PULSES BOUNDING AND EQUAL). negative: Calf Tenderness - Integumentary Skin: Normal, Warm, Dry Lymphatics: Normal - Neurologic Memory Impaired: Normal Motor Function: Normal Cranial Nerve: Normal Cerebellar: Normal Mood Description: Normal, Anxious Thought: Coherent Perception: Normal - Other Exam Other Exam Findings: Allergies No Known Allergies Allergy (Verified 06/07/16 17:04) Last Vital Signs Temp 98.2 F 06/09/16 07:00 Pulse 85 06/09/16 08:00 Resp 20 06/09/16 06:00 BP 158/93 06/09/16 08:00 Pulse Ox 96 06/08/16 20:00 06/08/16 05:30 06/09/16 04:57 Abnormal Lab Results 06/08/16 06/08/16 06/08/16 11:53 17:34 21:02 Sodium Glucose POC Capillary Glucose 302 H 356 H 378 H Calculated Osmolality Magnesium 06/09/16 06/09/16 04:57 04:57 Sodium 132 L Glucose 258 H POC Capillary Glucose 274 H Calculated Osmolality 263 L Magnesium 1.40 L Discharge Home Medication List Aspirin (Enteric Coated) [Halfprin] 325 mg PO DAILY #90 tab 06/09/16 [Rx] Carvedilol [Coreg] 12.5 mg PO BID #180 tab 06/09/16 [Rx] Hydrochlorothiazide 25 mg PO DAILY #90 tablet 06/09/16 [Rx] Lisinopril 40 mg PO DAILY #90 tablet 06/09/16 [Rx] Metformin HCl [Glumetza] 1,000 mg PO BID #180 tab 06/09/16 [Rx] New Discharge Medications (Rx) Aspirin (Enteric Coated) [Halfprin] 325 mg PO DAILY #90 tab 06/09/16 [Rx] Carvedilol [Coreg] 12.5 mg PO BID #180 tab 06/09/16 [Rx] Hydrochlorothiazide 25 mg PO DAILY #90 tablet 06/09/16 [Rx] Lisinopril 40 mg PO DAILY #90 tablet 06/09/16 [Rx] Metformin HCl [Glumetza] 1,000 mg PO BID #180 tab 06/09/16 [Rx] Home Medications Aspirin (Enteric Coated) [Halfprin] 325 mg PO DAILY #90 tab 06/09/16 Carvedilol [Coreg] 12.5 mg PO BID #180 tab 06/09/16 Hydrochlorothiazide 25 mg PO DAILY #90 tablet 06/09/16 Lisinopril 40 mg PO DAILY #90 tablet 06/09/16 Metformin HCl [Glumetza] 1,000 mg PO BID #180 tab 06/09/16 06/08/16 05:30 06/09/16 04:57 Initial Vitals Temperature 98.3 F 06/07/16 14:38 Pulse Rate 106 06/07/16 14:38 Respiratory Rate 18 06/07/16 14:38 Blood Pressure 260/117 H 06/07/16 14:38 Pulse Oxygen Saturation 99 06/07/16 14:38 Microbiology 06/07/16 20:30 Nares Nasal Screen MRSA (PCR)(MARELY) - Final POSITIVE for MRSA DNA -------- In the absence of signs/symptoms of infection, nasal colonization with MRSA is not an indication of vancomycin therapy. Vancomycin is NOT EFFECTIVE for eradication of MRSA nasal colonization. Active Problems Alcohol use (Acute) Z78.9 Drinks 3-4 days a week. Counseled cessation Cocaine use (Acute) F14.10 Strongly encouraged to stop using any street drugs Dizziness (Acute) R42 Likely related to uncontrolled blood pressures, uncontrolled blood sugars, mild dehydration. Dyslipidemia (Acute) E78.5 Will obtain lipid panel GERD (gastroesophageal reflux disease) (Acute) K21.9 Continue PPI Hyperglycemia (Acute) R73.9 Hypertensive emergency (Acute) I16.1 Up- titrate medications to keep blood pressure under better control. Monitor renal function Malignant hypertension (Acute) I10 Started on IV nitroglycerin with some improvement in blood pressures. Start hydrochlorothiazide and metoprolol. Add ARUNA-inhibitor in 1-2 days. Noncompliance with medication regimen (Acute) Z91.14 Stressed compliance and follow-up primary physician Uncontrolled diabetes mellitus (Acute) E11.65 Continue metformin and ADA diet continue sliding scale regular insulin
[2016-06-09] MEDS: HYDROCHLOROTHIAZIDE 25 MG TAB PO SCH (09:06)
[2016-06-09 09:16] VITALS: PULSE 78
[2016-06-09 10:30] VITALS: BP 143/83
[2016-06-09] MEDS ORDERED: MetFORMIN 500 MG IMMED RELEASE TAB PO SCH ×2 (17:00)
== END 2016-06-09 10:00 | disposition home or self-care (01) | DRG 305 ==
LOC: ED 14:02 → ICU 19:03
PROVIDERS: ADMIT Hospitalist; ATTEND Hospitalist
PROC: 039B3ZZ Drainage of Right Radial Artery, Percutaneous Approach (ICD-10-PCS; principal; 2016-06-07)
DX: I16.1 Hypertensive emergency (principal); E11.49 Type 2 diabetes mellitus with other diabetic neurological complication; I71.2 Thoracic aortic aneurysm, without rupture; E11.65 Type 2 diabetes mellitus with hyperglycemia; F14.10 Cocaine abuse, uncomplicated; K21.9 Gastro-esophageal reflux disease without esophagitis; E78.5 Hyperlipidemia, unspecified; Z91.14 Patient's other noncompliance with medication regimen; F10.10 Alcohol abuse, uncomplicated; I10 Essential (primary) hypertension
CPT/HCPCS: 36415; 36600; 71010; 71275; 74174; 80048; 80053; 80307; 81001; 82043; 82803; 82962; 83036; 83735; 84484; 85025; 85610; 85730; 87641; 93005; 96372; 96375; 99285; A9698; G0237; J0360; J1650; J3490; J7040